=== PATIENT | female | born 1985 | race Caucasian/White ===

== ENCOUNTER 2023-04-07 01:44 | Day surgery (SDC) | payer OTHER, SELFPAY ==
[2023-04-01 15:06] VITALS: BMI 23.4
--- NOTE | 2023-04-01 15:12 | PC.NURSE ---
Report to the Outpatient Waiting Room, entrance under the green pavilion located off [facility], at time 0600 on date 04/07/23. Planned Procedure Time: 0730. Time changes happen often and if your time is changed the preop area will call you the afternoon before. - You and your visitor will be asked to self-screen and do not enter if you have any COVID symptoms. - A mask is optional within the hospital at this time. Patients may have clear liquids (water, carbonated beverages, clear teas, apple juice) until 3 hours prior to surgery with a maximum of 20 ounces. - No food from midnight until time of surgery Take the following medications with a SIP of water the morning of surgery: INHALER DO NOT STOP ANY OF YOUR OTHER PRESCRIPTION MEDICATIONS PRIOR TO SURGERY EXCEPT THE FOLLOWING Medications to discontinue per physician: VITAMINS/SUPPLEMENTS Date to take last dose: 04/03/23 Please no make-up, nail sinhala, hairspray, perfume, deodorant, or body powder the day of surgery. No jewelry (including any body piercings) or valuables the day of surgery, leave them at home. Please take a shower or bath the night before, or the morning of, surgery with an antibacterial soap. Wear comfortable, loose fitting clothing. - Jewelry must be removed prior to entering the operating room. Rings and piercings that are not removed may be cut off. - The hospital will not accept responsibility for valuables. - Please leave all valuables, including medications, at home the day of surgery. If you are going home after surgery, a licensed delivery route driver must drive you home. - NO public transportation without another adult if you receive anesthesia. - We recommend that an adult stay with you for 24 hours following discharge. - We also recommend that you do not drive, make important decision, drink alcoholic beverages, or take any drugs that were not prescribed by your health care provider for at least 24 hours after your discharge time. Follow any additional instructions given to you from your surgeon. If you or anyone in your household have experienced Covid symptoms in the past week, please notify your surgeon or the nurse liaison at the phone number below for possible testing. Telephone instructions given to TREVIN SIERRA and asked if any additional questions and then verbalized understanding. Patient advised to call surgeon office or pre surgery nurse liaison [phone] if any additional questions.
[2023-04-07] VITALS (9 sets, daily range): BP systolic 85–114; BP diastolic 50–78; PULSE 76–97; RESP 12–20; TEMP 36.1–36.8; O2SAT 98–100
--- NOTE | 2023-04-07 05:52 | ECG_ITS ---
Measurements Intervals [place] Rate: 70 P: 71 LA: 165 QRS: 44 QRSD: 84 T: 60 QT: 399 QTc: 432 Interpretive Statements SINUS RHYTHM NORMAL ECG NO PREVIOUS ECG AVAILABLE FOR COMPARISON Electronically Signed On 04-07-2023 8:07:42 CDT by Colby Dumont D.O.
[2023-04-07 06:47] LABS: Urine Cotinine NEGATIVE
[2023-04-07] MEDS: ACETAMINOPHEN 500 MG TABLET 1000 MG PO (06:50)
[2023-04-07] MEDS: LACTATED RINGERS 1,000 ML 30 ML IV CONT ×2 (07:00→13:56)
--- NOTE | 2023-04-07 07:03 | WPDANESEPPF ---
Anes - Initial Pre Proc Eval Procedure: Operation Date: 04/07/23 07:30 Proposed Procedures p Abdominoplasty with Liposuction - Lionel Yap MD s Bilateral Breast Augmentation - Lionel Yap MD s Bilateral Breast Mastopexy - Lionel Yap MD s Umbilical Hernia Repair Possible Mesh - Lucy Hagen MD Date/Time: 04/07/23 07:03 Surgeon: Lionel Yap MD Pre Op Diagnosis: skin laxity and micromastia, umb. hernia Patient Data Age: 37 Gender: F Height: 1.63 m Weight: 62 kg Allergies Allergy/AdvReac Type Severity Reaction Status Date / Time lidocaine AdvReac Mild Itching Verified 04/07/23 06:44 Home Medications Medication Instructions Recorded Confirmed Type amitriptyline 100 mg tablet 100 mg PO QHS 03/05/23 04/01/23 History dextroamphetamine-amphetamine ER 25 mg PO DAILY 03/05/23 04/01/23 History 25 mg 24hr capsule,extend release (Adderall XR) sertraline 50 mg tablet 50 mg PO HS 03/05/23 04/01/23 History Lactobacillus 1 cap PO DAILY 04/01/23 04/01/23 History acidophilus-Bifidobac.animalis 2.5 billion cell capsule (Daily Probiotic) albuterol sulfate 90 mcg/actuation 2 inh inhalation Q4H PRN 04/01/23 04/01/23 History aerosol inhaler Bronchospasm fluticasone 250 mcg-salmeterol 50 1 inh inhalation Q12H 04/01/23 04/01/23 History mcg/dose blistr powdr for inhalation (Advair Diskus) multivitamin 1 tablet PO DAILY 04/01/23 04/01/23 History Laboratory Tests 04/07/23 06:29 Cotinine Negative Patient hx anesthesia problems: post op nausea/vomiting Family hx anesthesia problems: none Results Review: All pre-operative results and documents have been reviewed as part of the pre-operative evaluation. [facility] Past Medical History Medical History (Updated 03/05/23 @ 11:00 by MARIANNE Husain) Anxiety Asthma Surgical History Surgical History (Updated 03/05/23 @ 10:43 by Gladys Davis) Hx of exploratory laparotomy 2016 @ [facility] Family History Family History (Updated 03/05/23 @ 10:43 by Gladys Davis) Other Asthma Diabetes mellitus Hypertension Social History Social History (Updated 03/05/23 @ 10:44 by Gladys Davis) Smoking status: Never smoker Alcohol intake: current Drinks per week: 6 Substance use: never Substance use type: does not use Living arrangements: with family Spiritual care concerns: No Anes - Eval Final PreProcedure Day of Procedure 04/07/23 07:03 Patient weight: normal Heart: regular rate and rhythm Lungs: clear to auscultation Airway: Mallampati scale class II Neurological: alert and oriented Last oral intake: >/= 8 hours ASA classification: II Emergent: no Anesthetic plan: proceed Anesthesia type and monitoring: general ETT and standard monitoring Results Review: All pre-operative results and documents have been reviewed as part of the pre-operative evaluation. Informed Consent: The patient's anesthetic plan and its attendant risks and benefits were discussed with the patient/family/POA. Questions were solicited and answers provided to the satisfaction of the patient/family/POA.
[2023-04-07] MEDS: SCOPOLAMINE 1.5 MG PATCH TRANSDERM ×2 (07:07)
[2023-04-07 07:12] LABS: Hematocrit 39.8 % (37.0-47.0); Hemoglobin 12.6 g/dL (12.0-15.0)
--- NOTE | 2023-04-07 07:32 | WPDHPUPDATE1 ---
History and Physical Update Update Date/Time: 04/07/23 07:32 History and Physical has been reviewed, including an updated exam of the patient. There are NO changes in the patient's condition. Risks, benefits, and alternatives have been discussed and questions answered. Patient agrees to proceed with procedure.
[2023-04-07] MEDS: KETOROLAC 15 MG/ML VIAL (*BKC) IV PUSH (07:34)
--- NOTE | 2023-04-07 07:34 | W.PM.PROC2 ---
Procedure Note - Detailed Date of Procedure 04/07/23 Pre-op Diagnosis skin laxity and micromastia, umb. hernia Post-op Diagnosis Same Procedure Performed 1. Bilateral augmentation mastopexy 2. Progressive tension abdominoplasty with suction lipectomy Surgeon Lionel Yap MD Anesthesia General Findings Inverted T mastopexy Superior pedicle Bilateral Tommy Gomes SoftTouch 360cc Right - REF# [id number] SN [id number] Left - REF# [id number] SN [id number] Tissue removed: 596 grams Lipoaspirate: 900 cc Description of Procedure They are here today for the above. Previously and again today the risks, benefits, alternatives were discussed in extensive detail. I wanted them to be very realistic about the risks involved as well as expectations. We discussed aftercare and what to monitor for. I was very upfront about the risks of wound breakdown leading to loss of skin, open wounds, and need for additional procedures with permanent abdominal deformity. We discussed DVT/PE risks and management. Made sure answered all of their questions to their satisfaction today and consent was obtained. Marked in the preoperative holding area with their verification. The patient was taken to the operating room placed supine on the operating table. Anesthesia was provided by anesthesiology. A surgical time-out was taken. We cleansed the skin and 1% lidocaine and 0.25% Marcaine with epinephrine was used anesthetize as a field block. She was prepped and draped in a standard sterile fashion. Breast Tegaderm nipple Mcgarry were placed. A 15 blade used to make an incision just superior to the inframammary fold leaving a cusp of de-epithelized tissue at the t junction. Dissection was continued until the chest wall as identified. I incised the pectoralis major along its inferior border and completely released the inferior border leaving the medial border intact. I created a subpectoral pocket in the appropriate dimensions based on our preoperative planning for the implant. I then copiously irrigated with saline solution and verified a strict hemostasis. Next the use a triple antibiotic and Betadine containing solution to irrigate the pocket. I washed my gloves with the triple antibiotic and Betadine solution. We washed the implant immediately upon opening it with this solution and only opened it when we needed it. I used implant funnel and no-touch technique. The implant was introduced into the pocket using the funnel. Having verified positioning of the implant this was closed using 2-0 PDS. I tailor tacked the breast into position. Placed her in a sitting position. Verified the nipple-areolar location based on preoperative planning as well as intraoperative observations and measurements in full agreement. She was placed supine. I de-epithelialized the pedicle. I then removed the inferior central portion of the breast need making sure the implant was well protected. I elevated medial and lateral tissue flaps as well for planned closure. I closed along the IMF with 2-0 Stratafix. Along the vertical with 2-0 PDS. I closed around the areola with 3-0 strata fix. 3-0 Monocryl along the vertical. 3-0 Stratafix along the IMF. I finally closed everything with running subcuticular 4-0 Monocryl and tissue glue. Abdomen I placed the patient in a flexed position to verify the upper and lower markings would reach. I then placed supine. A thorough abdominal examination was completed. Stab incisions were made and tumescent solution infiltrated. Once adequate time was allowed for hemostasis a 5mm basket cannula and 3mm multi hole cannula were utilized to complete suction lipectomy based on S.A.F.E. technique in multiple planes and passes. There were turned to bilateral lateral decubitus position with care taken to protect them for injury during this process. Suction lipectomy continued to result based on pre-operative planning, intra-operative observation, and rolling
--- NOTE | 2023-04-07 07:45 | SUR.PREOP ---
0730-SPOKE WITH BRIGIDO ANDERSON AND PHAM ABOUT PT GOING BACK TO OR BEFORE SEEING DR. SAMANIEGO IN PRE OP. PT DOES NOT HAVE QUESTIONS FOR DR. SAMANIEGO AT THIS TIME. DR. SEGOVIA SEEN PT AND STATED HE IS OK WITH PT GOING BACK TO OR SINCE HIS PORTION OF THE PROCEDURE IS FIRST. DR. SAMANIEGO UPDATED THAT H&P IS OUT OF DATE.
[2023-04-07] MEDS: ceFAZolin 2 GM/D5W 50 ML 2 GM/50 ML BAG IVPB (07:51)
[2023-04-07] MEDS: TRANEXAMIC ACID 1,000MG/ISO100 1,000 MG/100 ML BAG 200 MG IVPB (08:03)
[2023-04-07] MEDS: NACL 0.9% IRRIG POUR BOTTLE 900 ML, GENTAMICIN SULFATE INJ 160 MG, ceFAZolin 2 GM, POVI... IRRIGATION (08:27)
[2023-04-07] MEDS: LIDO 1%/EPINEPHRINE 1:100,000 20 ML VIAL 30 ML INFILTRATE (08:27)
--- NOTE | 2023-04-07 09:59 | SUR.OPER ---
Patient stated in pre op her reaction to Lidocaine is topical/itching. Verfied having dental procedures prior with no issue with local. Dr Yap aware of itching and to proceed with Lidocaine and Bupivicaine local/aware lidocaine in tumescent. Dr Yap talked to patient related to any questions for Dr Hagen patient verbilized no questions. To proceed with surgery all consents signed and correct. To proceed to surgery as per Tamara Pre-op Tc Operator and prison guard supervisor Rafaela Benavides and Dr Yap.
--- NOTE | 2023-04-07 11:38 | PM.IMHP ---
H&P: HPI History of Present Illness Date/Time: 04/07/23 11:38 Chief Complaint: umbilical hernia Narrative: Patient is scheduled for breast augmentation and abdominoplasty with Dr. Rust on 04/07. She is hoping to get hernia fixed at the same time as her breast augmentation and abdominoplasty. She reports she first noticed hernia after giving to her first child in 2018. She reports constant abdominal pain. She has had U/S and x-ray at [facility] in [place], [place] that showed umbilical hernia and diastasis recti. She is not able to reduce the hernia either. Review of Systems Review of Systems: All systems reviewed & are unremarkable except as noted in HPI and below PMFSH Past Medical History Medical History Anxiety Asthma Surgical History Surgical History Hx of exploratory laparotomy 2016 @ [facility] Family History Family History Other Asthma Diabetes mellitus Hypertension Social History Social History Smoking status: Never smoker Alcohol intake: current Drinks per week: 6 Substance use: never Substance use type: does not use Living arrangements: with family Spiritual care concerns: No Meds Home Medications and Allergies Home Medications Medication Instructions Recorded Confirmed Type amitriptyline 100 mg tablet 100 mg PO QHS 03/05/23 04/07/23 History dextroamphetamine-amphetamine ER 25 mg PO DAILY 03/05/23 04/07/23 History 25 mg 24hr capsule,extend release (Adderall XR) sertraline 50 mg tablet 50 mg PO HS 03/05/23 04/07/23 History Lactobacillus 1 cap PO DAILY 04/01/23 04/07/23 History acidophilus-Bifidobac.animalis 2.5 billion cell capsule (Daily Probiotic) albuterol sulfate 90 mcg/actuation 2 inh inhalation Q4H PRN 04/01/23 04/07/23 History aerosol inhaler Bronchospasm fluticasone 250 mcg-salmeterol 50 1 inh inhalation Q12H 04/01/23 04/07/23 History mcg/dose blistr powdr for inhalation (Advair Diskus) multivitamin 1 tablet PO DAILY 04/01/23 04/07/23 History Allergies Allergy/AdvReac Type Severity Reaction Status Date / Time lidocaine AdvReac Mild Itching Verified 04/07/23 06:44 Vital Signs Vital Signs - 24 hr 04/07/23 07:23 Temperature 36.4 C L Pulse Rate 84 Respiratory Rate 16 Blood Pressure 103/75 Pulse Oximetry 99 Oxygen Delivery Room Air Exam Const: General: cooperative, comfortable and no acute distress GI: Other: small, incarcerated UH, diastasis recti H&P: Results Labs Labs: Short CBC 04/07/23 Range/Units 06:46 Hgb 12.6 (12.0-15.0) g/dL Hct 39.8 (37.0-47.0) % Assessment and Plan Assessment and plan (1) Umbilical hernia without obstruction and without gangrene: Code(s): K42.9 - Umbilical hernia without obstruction or gangrene Status: Acute Assessment and Plan: will repair concurrently c Dr Overton during abdominosplasty
--- NOTE | 2023-04-07 11:40 | WPDHPUPDATE1 ---
History and Physical Update Update Date/Time: 04/07/23 11:40 History and Physical has been reviewed, including an updated exam of the patient. There are NO changes in the patient's condition. Risks, benefits, and alternatives have been discussed and questions answered. Patient agrees to proceed with procedure.
[2023-04-07] MEDS: ceFAZolin SODIUM 1 GM VIAL IV PUSH (11:46)
[2023-04-07] MEDS: BUPIVACAINE/EPINEPHRINE 0.5% 50 ML VIAL 60 ML INFILTRATE (12:06)
--- NOTE | 2023-04-07 12:06 | W.PM.PROC2 ---
Procedure Note - Detailed Date of Procedure 04/07/23 Pre-op Diagnosis incarcerated umbilical hernia Post-op Diagnosis Same Procedure Performed primary repair incarcerated umbilical hernia, 2 cm defect Surgeon Lucy Hagen MD Anesthesia General Indications 37-year-old female presenting with a small incarcerated umbilical hernia. Patient is concurrently getting abdominoplasty with Dr. Calle. Findings 2 cm incarcerated umbilical hernia Description of Procedure The patient was in the operating room in the supine position. The patient has already undergone the majority of the abdominal plasty per Dr. Calle, please see full operative report for details. Intraoperatively, I was called to repair the incarcerated umbilical hernia. A time-out was done to verify the patient's identity as well as the procedure being performed. I began by the umbilicus inferiorly off the fascia. I was able to separate the hernia sac off the umbilicus. I then excised the hernia sac. The contents of the hernia were examined and noted to be preperitoneal fat that was viable. The contents were then reduced back into the peritoneal cavity. The defect was noted to measure approximately 2 cm. I then closed the defect with interrupted 0 Ethibond sutures x4. I then reapproximated the umbilicus to our fascial repair using a 2-0 Vicryl U-stitch. At this point Dr. Calle return for the completion of the abdominoplasty. Estimated Blood Loss 5 Pathology None sent Complications No immediate complications Condition Stable Disposition No change [facility] Billing Surgery - Charge Forward: Surgery Billing
[2023-04-07] MEDS: LACTATED RINGERS IRRIG 1,000 ML, LIDOCAINE HCL 1% LOCAL INJ 50 ML, EPINEPHrine HCL INJ ... INFILTRATE (12:42)
--- NOTE | 2023-04-07 14:02 | SUR.OPER ---
patient to PACU in sitting position head of bed up/legs/knees up with 2 pillow under.
[2023-04-07] MEDS: fentaNYL CITRATE INJ (*CRX) 100 MCG/2 ML VIAL 25 MCG IV PUSH ×2 (14:38→14:42)
[2023-04-07] MEDS: LACTATED RINGERS 1,000 ML 125 ML IV CONT (15:51)
[2023-04-07] MEDS: MORPHINE SULFATE (*CRX) 2 MG/ML INJ IV PUSH ×4 (16:01→23:24)
[2023-04-07] MEDS: KETOROLAC 10 MG TABLET PO ×2 (17:13→23:22)
[2023-04-07] MEDS: carisoprodoL (*CRX) 350 MG TABLET PO ×2 (17:14→23:35)
[2023-04-07] MEDS: ENOXAPARIN 40 MG/0.4 ML SYRINGE SUB-Q (20:28)
[2023-04-07] MEDS: FLUTICASONE/SALMETEROL 115-21 MCG INHALER 1 PUFF 2 PUFF INHALATION (20:29)
[2023-04-07] MEDS: SERTRALINE HCL 50 MG TABLET PO (20:49)
[2023-04-07] MEDS: DOCUSATE SODIUM 100 MG CAPSULE PO (20:54)
[2023-04-07] MEDS: AMITRIPTYLINE HCL 25 MG TABLET 100 MG PO (20:54)
[2023-04-07] MEDS: SIMETHICONE 80 MG TAB.CHEW (23:40)
[2023-04-08] MEDS: MORPHINE SULFATE (*CRX) 2 MG/ML INJ IV PUSH ×3 (02:36→09:19)
[2023-04-08 05:15] VITALS: BP 99/56; PULSE 99; RESP 16; TEMP 36.7; O2SAT 96
[2023-04-08] MEDS: KETOROLAC 10 MG TABLET PO ×2 (05:21→11:59)
[2023-04-08] MEDS: carisoprodoL (*CRX) 350 MG TABLET PO ×2 (05:21→12:00)
--- NOTE | 2023-04-08 07:33 | WPDPN ---
Progress Note: A&P Assessment and Plan (1) Encounter for cosmetic surgery: Code(s): Z41.1 - Encounter for cosmetic surgery Status: Acute Assessment and Plan: Doing well after bilateral augmentation mastopexy and progressive tension abdominoplasty with suction lipectomy. Will discharge home. Today we had a lengthy discussion about the care. What to monitor for. Activity limitations. What is a medical emergency and when to dial 911 / go to ER. Call with all other questions or concerns. (2) Umbilical hernia without obstruction and without gangrene: Code(s): K42.9 - Umbilical hernia without obstruction or gangrene Status: Acute Subjective Date/time seen: 04/08/23 07:33 Interval history: Doing well after bilateral augmentation mastopexy and progressive tension abdominoplasty with suction lipectomy. Has been out of bed to chair. Tolerating PO. No n/v. No f/c. No SOB. No CP. No calf tenderness. Review of Systems Review of Systems: All systems reviewed & are unremarkable except as noted in HPI and below Exam Narrative: Alert & Oriented NOD Respiratory unlabored Bilateral breasts healing well. No signs of infection. No hematoma. No seroma. Good color / cap refill. Abdomen healing well. No signs of infection. No hematoma. No seroma. Good color / cap refill. No calf tenderness. Negative Azeb's Objective Data Vital Signs Vital Signs: Vital Signs - 24 hr 04/07/23 14:00 04/07/23 14:15 04/07/23 14:30 Temperature 36.1 C L Pulse Rate 83 77 76 Respiratory Rate 14 12 12 Blood Pressure 85/50 L 94/61 L 104/69 Pulse Oximetry 100 100 100 Oxygen Delivery Simple Face Mask Simple Face Mask Simple Face Mask Oxygen Flow Rate 8 8 8 04/07/23 14:45 04/07/23 15:00 04/07/23 15:15 Temperature Pulse Rate 86 82 83 Respiratory Rate 14 13 12 Blood Pressure 110/71 111/78 114/77 Pulse Oximetry 100 100 99 Oxygen Delivery Room Air Room Air Room Air Oxygen Flow Rate 04/07/23 15:40 04/07/23 21:05 04/07/23 21:05 Temperature 36.8 C Pulse Rate 97 Respiratory Rate 18 Blood Pressure 108/70 Pulse Oximetry 99 Oxygen Delivery Room Air Room Air Oxygen Flow Rate 04/07/23 23:35 04/07/23 23:35 04/08/23 05:15 Temperature 36.4 C Pulse Rate 96 Respiratory Rate 20 Blood Pressure 110/68 Pulse Oximetry 98 Oxygen Delivery Room Air Room Air Oxygen Flow Rate 04/08/23 05:15 Temperature 36.7 C Pulse Rate 99 Respiratory Rate 16 Blood Pressure 99/56 L Pulse Oximetry 96 Oxygen Delivery Oxygen Flow Rate Intake/Output Intake/Output: Intake & Output 04/05/23 04/06/23 04/07/23 04/08/23 23:59 23:59 23:59 23:59 Intake Total 3850 Output Total 1989 175 Balance 1860 -175 Meds/Results Medications: Active Medications Generic Name Dose Route Start Last Admin Trade Name Freq PRN Reason Stop Dose Admin Albuterol 2 puff 04/07/23 15:33 Albuterol Sulfate (*Sp) Aerosol 1 Puff INHALATION Q4H PRN Bronchospasm Amitriptyline HCl 100 mg 04/07/23 21:00 04/07/23 20:54 Amitriptyline Hcl 25 Mg Tablet PO 100 mg QHS [facility] Administration Carisoprodol 350 mg 04/07/23 18:00 04/08/23 05:21 Carisoprodol (*Crx) 350 Mg Tablet PO 350 mg Q6HR ZAIN Administration Diazepam 5 mg 04/07/23 13:25 Diazepam (*Crx) 5 Mg Tablet PO TID PRN Anxiety Docusate Sodium 100 mg 04/07/23 21:00 04/07/23 20:54 Docusate Sodium 100 Mg Capsule PO 100 mg Q12HR [facility] Administration Enoxaparin Sodium 40 mg 04/07/23 20:00 04/07/23 20:28 Enoxaparin 40 Mg/0.4 Ml Syringe SUB-Q 40 mg DAILY@2000 [facility] Administration Lactated Ringer's 1,000 mls @ 125 mls/hr 04/07/23 13:25 04/08/23 05:48 Lr - Lactated Ringers Iv IV CONT Not Given .Q8H ZAIN Ketorolac Tromethamine 10 mg 04/07/23 18:00 04/08/23 05:21 Ketorolac 10 Mg Tablet PO 04/09/23 12:01 10 mg Q6HR [facility] Administration Morphine Sulfate 2 mg
--- NOTE | 2023-04-08 07:36 | P.DS_ITS ---
DS: Admitting Diagnosis Discharge Date 04/08/2023 Admitting Diagnosis Encounter for cosmetic surgery Umbilical hernia DS: Discharge Diagnosis Discharge Diagnosis (1) Encounter for cosmetic surgery: Code(s): Z41.1 - Encounter for cosmetic surgery Status: Acute (2) Umbilical hernia without obstruction and without gangrene: Code(s): K42.9 - Umbilical hernia without obstruction or gangrene Status: Acute DS: Summary Hospital Course Hospital Course: Patient underwent bilateral augmentation mastopexy and progressive tension abdominoplasty with suction lipectomy with and umbilical hernia repair with Dr. Hagen. Postoperatively has done well. Will discharge home. Time Spent with Patient Time attestation: Total time spent providing and/or coordinating discharge services: Exam Narrative: Alert & Oriented NOD Respiratory unlabored Bilateral breasts healing well. No signs of infection. No hematoma. No seroma. Good color / cap refill. Abdomen healing well. No signs of infection. No hematoma. No seroma. Good color / cap refill. No calf tenderness. Negative Azeb's Discharge Plan Discharge Patient Disposition: Home, Self-Care Discharge Instructions: POST OPERATIVE DISCHARGE INSTRUCTIONS LIONEL YAP M.D. [facility] [id number] [place] [address] * No driving for 24 hours after anesthesia and while you are taking pain medication. * Take all prescribed medication as directed * Diet as tolerated. * No lifting or activity that raises blood pressure for 48 hours. * Regular walking / ambulation. * May shower 24 hours after surgery. Once you shower do not take pain medication before showering as the combination of medication and heat may cause you to feel dizzy or pass out. * No pools or tubs for 2 weeks. * Slowly stand up straight as tolerated. * No straining or lifting more than 20 pounds. * If no bowel movement within 24 hours may use laxative. * Call with any questions or concerns. * Dressing Care: Continue abdominal binder / foam 23 hours per day. * Remove the Scopolamine patch that was placed behind your left ear in 72 hours or less. Wash your hands after touching. If you have any questions or concerns, please call the office . If it is after hours you will be directed to the taxation inspector exchange. Shortness of breath, chest pain, or other medical emergency dial 911 / proceed to the Emergency Room. Stand Alone Forms: General Discharge Instructions Follow-up/Referrals: Lionel Yap MD [Physician] - 1 Week Discharge Medications: Continued amitriptyline 100 mg tablet 100 mg PO QHS sertraline 50 mg tablet 50 mg PO HS fluticasone propion-salmeterol [Advair Diskus] 250-50 mcg/dose Blister With Device 1 inh INHALATION Q12H albuterol sulfate 90 mcg/actuation HFA aerosol inhaler 2 inh INHALATION Q4H PRN (Reason: Bronchospasm) multivitamin Tablet 1 tablet PO DAILY Daily Probiotic 2.5 billion cell Capsule 1 cap PO DAILY Discontinued dextroamphetamine-amphetamine [Adderall XR] 25 mg capsule,extended release 24hr 25 mg PO DAILY
[2023-04-08 08:05] VITALS: BP 91/61; PULSE 98; RESP 18; TEMP 36.7; O2SAT 96
[2023-04-08] MEDS: DOCUSATE SODIUM 100 MG CAPSULE PO (09:19)
[2023-04-08] MEDS: FLUTICASONE/SALMETEROL 115-21 MCG INHALER 1 PUFF 2 PUFF INHALATION (09:39)
--- NOTE | 2023-04-08 10:07 | WPDANESPN ---
Anes - Prog Note Post-Op Date/Time: 04/08/23 10:07 Cardiovascular status: normal Respiratory status: normal Airway patency: baseline Mental status: baseline Post-Op hydration status: normal Vital Signs: Last Vital Signs Temp 36.7 C 04/08/23 08:05 Pulse 98 04/08/23 08:05 Resp 18 04/08/23 08:05 BP 91/61 L 04/08/23 08:05 Pulse Ox 96 04/08/23 08:05 O2 Del Method Room Air 04/08/23 09:19 O2 Flow Rate 8 04/07/23 14:30 Pain Score (VAS): 2/10 I/O: Intake & Output 04/07/23 04/08/23 04/08/23 23:59 07:59 15:59 Intake Total 1700 440 Output Total 1900 175 Balance -200 -175 440 Laboratory Tests 04/07/23 06:46 Post-procedural complaints: none Patient Feedback: Patient satisfied with anesthetic care.
[2023-04-08] MEDS: SIMETHICONE 80 MG TAB.CHEW PO ×2 (10:44→14:18)
[2023-04-08] MEDS: oxyCODONE/ACETAMINOPHEN (*CRX) 5-325 MG TABLET PO (14:16)
== END 2023-04-08 14:25 | disposition home or self-care (01) ==
LOC: ANHSURGERY 07:36 → ANHOB2 15:35
PROVIDERS: Surgery; Visit Provider Surgery Plastic and Reconstructive Surgery
PROC: (CPT 19316; principal; 2023-04-07 07:30)
PROC: (CPT 19316; 2023-04-07 07:30)
PROC: (CPT 19316; 2023-04-07 07:30)
PROC: (CPT 49592; 2023-04-07 07:30)
DX: Z30.2 Encounter for sterilization (principal); K42.0 Umbilical hernia with obstruction, without gangrene; N64.82 Hypoplasia of breast; L57.4 Cutis laxa senilis; J45.909 Unspecified asthma, uncomplicated; F41.9 Anxiety disorder, unspecified; Z79.51 Long term (current) use of inhaled steroids
CPT/HCPCS: 49592; 19316; 19325; 15877; 15830; 15847; 80307; 85014; 85018; 93005; 94640; 99199; A9270; J0171; J0690; J1100; J1170; J1580; J1650; J1885; J2250; J2270; J2405; J2704; J2710; J3010; J7120